=== PATIENT | male | born 1940 | race Caucasian/White ===

== ENCOUNTER 2018-11-25 13:19 | Outpatient (RCR) | payer MEDICARE, OTHER | END 2019-02-23 | disposition home or self-care (01) | LOC: ONC 13:19 | PROVIDERS: ATTEND Internal Medicine Hematology & Oncology | DX: C22.8 Malignant neoplasm of liver, primary, unspecified as to type (principal); C79.89 Secondary malignant neoplasm of other specified sites; D61.810 Antineoplastic chemotherapy induced pancytopenia; T45.1X5A Adverse effect of antineoplastic and immunosuppressive drugs, initial encounter | CPT/HCPCS: 99214 ==